=== PATIENT | female | born 1960 | race Caucasian/White ===

== ENCOUNTER → 2021-11-14 08:56 | Outpatient (BNVA) | payer MEDICARE, SELFPAY | PROVIDERS: PCP Family Medicine; Visit Provider Family Medicine | DX: M53.86 Other specified dorsopathies, lumbar region (principal) | CPT/HCPCS: 72100 ==

== ENCOUNTER 2021-12-02 06:00 | Outpatient (RCR) | payer MEDICARE, SELFPAY | END 2021-12-21 23:59 | disposition home or self-care (01) | LOC: MPT 06:00 | PROVIDERS: PCP Family Medicine; Referring Provider Family Medicine; Visit Provider Family Medicine | DX: M54.50 Low back pain, unspecified (principal); G89.29 Other chronic pain | CPT/HCPCS: 97110; 97162; G0283 ==

== ENCOUNTER 2021-12-22 06:00 | Outpatient (RCR) | payer MEDICARE, SELFPAY | END 2022-01-17 17:39 | disposition home or self-care (01) | LOC: MPT 06:00 | PROVIDERS: PCP Family Medicine; Referring Provider Family Medicine; Visit Provider Family Medicine | DX: M54.50 Low back pain, unspecified (principal); G89.29 Other chronic pain | CPT/HCPCS: 97110; G0283 ==

== ENCOUNTER → 2022-02-05 09:25 | Outpatient (BNVA) | payer MEDICARE, SELFPAY | PROVIDERS: PCP Family Medicine; Visit Provider Family Medicine | DX: F31.9 Bipolar disorder, unspecified (principal); K21.9 Gastro-esophageal reflux disease without esophagitis; Z13.1 Encounter for screening for diabetes mellitus; Z13.6 Encounter for screening for cardiovascular disorders; R53.83 Other fatigue; Z51.81 Encounter for therapeutic drug level monitoring; F41.1 Generalized anxiety disorder; M53.86 Other specified dorsopathies, lumbar region; R53.82 Chronic fatigue, unspecified; Z68.38 Body mass index [BMI] 38.0-38.9, adult; Z12.39 Encounter for other screening for malignant neoplasm of breast | CPT/HCPCS: 80053; 80061; 84443; 85025 ==

== ENCOUNTER 2022-10-16 09:35 | Outpatient (CLI) | payer MEDICARE, SELFPAY ==
--- NOTE | 2022-10-16 09:53 | MM_ITS ---
WS: [id number] BILATERAL SCREENING DIGITAL TOMOSYNTHESIS MAMMOGRAM WITH CAD HISTORY: Screening exam. COMPARISON: 08/16/2021 and 05/05/2018 Bilateral CC and MLO views with tomosynthesis and synthetic mammography submitted. Computer aided det ection analyzed. Breast composition: There are scattered areas of fibroglandular density. No suspicious masses, microc alcifications or architectural distortion. Benign scattered calcifications. MM/[place] [id number] IMPRESSION: BI-RADS: 2-Benign FOLLOW UP: 1 Year Follow-up
== END 2022-10-16 09:36 | disposition home or self-care (01) ==
PROVIDERS: PCP Family Medicine; Visit Provider Family Medicine
DX: Z12.31 Encounter for screening mammogram for malignant neoplasm of breast (principal)
CPT/HCPCS: 77063; 77067

== ENCOUNTER → 2023-07-03 09:10 | Outpatient (BNVA) | payer MEDICARE, MEDICAID, SELFPAY | PROVIDERS: PCP Family Medicine; Visit Provider Family Medicine | DX: F31.9 Bipolar disorder, unspecified; I10 Essential (primary) hypertension; F41.1 Generalized anxiety disorder; K21.9 Gastro-esophageal reflux disease without esophagitis; G47.00 Insomnia, unspecified; Z13.220 Encounter for screening for lipoid disorders; Z13.6 Encounter for screening for cardiovascular disorders | CPT/HCPCS: 80053; 80061; 83735 ==

== ENCOUNTER 2024-04-15 10:59 | Outpatient (CLI) | payer OTHER, MEDICAID, SELFPAY ==
--- NOTE | 2024-04-15 11:06 | XR_ITS ---
WS: [id number] XR hand LT min 3V* [id number] REASON FOR EXAM: M79.642 - Pain in left hand FINDINGS: No acute fracture or focal bone lesion. No periosteal reaction. Small radiopaque foreign body in the subcutaneous tissues of the dorsum of the hand at the level of t he mid and mid third metacarpal. No other radiopaque foreign body identified. Mild narrowing with subchondral sclerosis in the PIP and DIP joints of the little finger. Similar art hropathic changes in the joints of the thumb with mild subluxation at the MCP joint. XR/XR hand LT min 3V* [id number] IMPRESSION: Small radiopaque foreign body in the dorsum of the hand. Mild osteoarthritis as above.
--- NOTE | 2024-04-15 13:00 | XR_ITS ---
WS: [id number] DEXA (DUAL ENERGY X-RAY ABSORPTIOMETRY) Bone mineral density was performed using a [employer] machine. HISTORY: Z78.0 - Asymptomatic menopausal state COMPARISON: None available. Lumbar spine BMD (L1-L4): 0.973 g/cm2 T score: -1.7 Z score: -1.4 Total hip BMD: Left: 0.769 g/cm2. T score: -1.9 Z score: -1.6 Right: 0.762 g/cm2. T score: -2.0 Z score: -1.7 10 year probability of a major osteoporotic fracture is 22.8%. XR/XR DEXA axial skeleton* [id number] IMPRESSION: OSTEOPENIA based upon the WHO classification for females.
--- NOTE | 2024-04-15 13:30 | MM_ITS ---
WS: [id number] BILATERAL 3D TOMOSYNTHESIS DIGITAL SCREENING MAMMOGRAPHY WITH CAD CLINICAL INFORMATION: Z12.39 - Encounter for other screening for malignant neop... HISTORY: Screening mammogram. No current complaints. COMPARISON: 10/16/2022 TECHNIQUE: Bilateral CC and MLO views. FINDINGS: Scattered fibroglandular densities bilaterally. No suspicious focal mass, asymmetry, calcifications, or architectural distortion. No evidence of malignancy. MM/[place] [id number] IMPRESSION: BI-RADS: 2-Benign FOLLOW UP: 1 Year Follow-up Recommend return to annual screening mammography.
== END 2024-04-15 11:00 | disposition home or self-care (01) ==
LOC: RAD 11:00
PROVIDERS: PCP Family Medicine; Visit Provider Family Medicine
DX: Z78.0 Asymptomatic menopausal state (principal); Z13.820 Encounter for screening for osteoporosis; Z12.31 Encounter for screening mammogram for malignant neoplasm of breast; S60.552A Superficial foreign body of left hand, initial encounter; M19.042 Primary osteoarthritis, left hand; M85.80 Other specified disorders of bone density and structure, unspecified site; R92.323 Mammographic fibroglandular density, bilateral breasts; X58.XXXA Exposure to other specified factors, initial encounter
CPT/HCPCS: 73130; 77063; 77067; 77080

== ENCOUNTER → 2025-04-07 09:28 | Outpatient (BNVA) | payer OTHER, MEDICAID, SELFPAY | PROVIDERS: PCP Family Medicine; Visit Provider Family Medicine | DX: I10 Essential (primary) hypertension (principal) | CPT/HCPCS: 80053; 80061 ==

== ENCOUNTER 2025-04-19 10:05 | Outpatient (CLI) | payer OTHER, MEDICAID, SELFPAY ==
--- NOTE | 2025-04-19 | MM_ITS ---
WS: [id number] BILATERAL SCREENING DIGITAL TOMOSYNTHESIS MAMMOGRAM WITH CAD HISTORY: ANNUAL SCREENING COMPARISON: 04/15/2024, 10/16/2022 and 08/16/2021 Bilateral CC and MLO views with tomosynthesis and synthetic mammography submitted. Computer aided detection analyzed. Breast composition: There are scattered areas of fibroglandular density. No suspicious masses, microcalcifications or architectural distortion. MM/MM scr BI tomosynthesis [id number] IMPRESSION: BI-RADS: 1 - Negative. FOLLOW UP: 1 Year Follow-up
== END 2025-04-19 10:06 | disposition home or self-care (01) ==
LOC: RAD 10:07
PROVIDERS: PCP Family Medicine; Visit Provider Family Medicine
DX: Z12.31 Encounter for screening mammogram for malignant neoplasm of breast (principal)
CPT/HCPCS: 77063; 77067